=== PATIENT | female | born 1945 | race Caucasian/White ===

== ENCOUNTER 2019-05-18 10:43 | Emergency (ER) | payer MEDICARE ==
--- NOTE | 2019-05-18 11:20 | EDM.PDOC ---
ED HPI GENERAL MEDICAL PROBLEM - General Chief Complaint: Diabetic Complaint Stated Complaint: HIGH BLOOD SUGAR Time Seen by Provider: 05/18/19 11:05 Source of Information: Reports: Patient, Family History Limitations: Reports: No Limitations - History of Present Illness INITIAL COMMENTS - FREE TEXT/NARRATIVE: Patient is an unfortunate morbidly obese 73-year-old female who presents emergency Department today with complaint of high blood sugar. Patient reports that 4 days ago she had an episode of confusion and lost her balance. And since that time she reports she's had sore throat cough congestion runny nose no fever so she went to the clinic today and she got a workup where she had a negative influenza screen negative strep screen the urine which showed elevation in glucose CBC which showed a white count of 13,500 a CMP which showed a glucose elevated at 441 and BUN of 45 and creatinine 1.48 sodium was 133 anion gap no acidosis two-view chest was also performed and we have a report which shows "impression: No acute cardiopulmonary disease." - Related Data Allergies Allergy/AdvReac Type Severity Reaction Status Date / Time codeine Allergy Cannot Verified 05/18/19 11:09 Remember hydrocodone Allergy Cannot Verified 05/18/19 11:09 Remember Home Meds: Home Meds Albuterol [Ventolin HFA] 2 puff INH Q4H PRN 05/18/19 [History] Azithromycin [Zithromax] 250 mg PO ASDIRECTED #6 tab 05/18/19 [Rx] Celecoxib [CeleBREX] 100 mg PO BID 05/18/19 [History] Furosemide [Lasix] 80 mg PO DAILY 05/18/19 [History] Gabapentin [Neurontin] 600 mg PO BEDTIME 05/18/19 [History] Losartan [Cozaar] 25 mg PO DAILY 05/18/19 [History] Potassium Chloride [Klor-Con M20] 20 meq PO BID 05/18/19 [History] Pramipexole Di-HCl [Mirapex] 1 mg PO QID 05/18/19 [History] Spironolactone [Aldactone] 50 mg PO DAILY 05/18/19 [History] metFORMIN [Glucophage XR] 500 mg PO BIDMEALS 05/18/19 [History] ED ROS GENERAL - Review of Systems Review Of Systems: See Below Constitutional: Denies: Fever, Chills HEENT: Reports: Rhinitis, Throat Pain Respiratory: Reports: Cough. Denies: Shortness of Breath GI/Abdominal: Denies: Abdominal Pain, Diarrhea, Nausea, Vomiting Neurological: Reports: Dizziness ED EXAM GENERAL NO PERIP PULSE - Physical Exam Exam: See Below Exam Limited By: No Limitations General Appearance: Alert, WD/WN, Mild Distress, Obese Ears: Other (Bilateral TMs dull) Nose: Normal Inspection, Normal Mucosa, No Blood Throat/Mouth: Normal Inspection, Normal Lips, Normal Teeth, Normal Gums, Normal Oropharynx, Normal Voice, No Airway Compromise Head: Atraumatic, Normocephalic Neck: Normal Inspection, Supple, Non-Tender, Full Range of Motion Respiratory/Chest: No Respiratory Distress, Lungs Clear, Normal Breath Sounds, No Accessory Muscle Use, Chest Non-Tender Cardiovascular: Normal Peripheral Pulses, Regular Rate, Rhythm, No Edema, No Gallop, No JVD, No Murmur, No Rub GI/Abdominal: Normal Bowel Sounds, Soft, Non-Tender, No Organomegaly, No Distention, No Abnormal Bruit, No Mass Back Exam: Normal Inspection, Full Range of Motion, NT Extremities: Normal Inspection, Normal Range of Motion, Non-Tender, Normal Capillary Refill, Other (Bilateral pretibial pedal edema 2+) Skin Exam: Warm, Dry Course - Vital Signs Last Recorded V/S: Last Vital Signs Temp 98 F 05/18/19 10:56 Pulse 78 05/18/19 12:30 Resp 18 05/18/19 12:30 BP 106/67 05/18/19 12:30 Pulse Ox 95 05/18/19 12:30 - Orders/Labs/Meds Orders: Active Orders 24 hr Category Date Time Status Accu Check [Blood Glucose Check, Bedside] [] ONETIME Care 05/18/19 11:23 Active Labs: Laboratory Tests 05/18/19 Range/Units 11:26 Glucose 384 H (83-115) mg/dL Meds: Medications Discontinued Medications Generic Name Dose Route Start Last Admin Trade Name Navid PRN Reason Stop Dose Admin Ceftriaxone Sodium 1 gm 05/18/19 12:47 Rocephin IM 05/18/19 12:48 ONETIME ONE Insulin Human Regular 15 unit 05/18/19 11:22 05/18/19 11:51 Humulin R SUBCUT 05/18/19 11:23 15 unit ONETIME ONE Administration - Re-Assessments/Exams Free Text/Narrative Re-Assessment/Exam: 05/18/19 12:48 Repeat Accu-Chek 384, no evidence of acidosis at this time we'll discharge to home and outpatient follow-up outpatient with PCP Departure - Departure Time of Disposition: 12:49 Disposition: Home, Self-Care 01 Clinical Impression: Hyperglycemia Acute bronchitis Qualifiers: Bronchitis organism: unspecified organism Qualified Code(s): J20.9 - Acute bronchitis, unspecified Acute sinusitis Qualifiers: Sinusitis location: other Recurrence: not specified as recurrent Qualified Code (s): J01.80 - Other acute sinusitis Acute pharyngitis Qualifiers: Pharyngitis/tonsillitis etiology: unspecified etiology Qualified Code(s): J02.9 - Acute pharyngitis, unspecified - Discharge Information Prescriptions: Azithromycin [Zithromax] 250 mg PO ASDIRECTED #6 tab Referrals: Jennifer Eagle MD [Primary Care Provider] - Forms: ED Department Discharge Additional Instructions: Home, rest, return as needed for worsening condition Sepsis Event Note - Focused Exam Vital Signs: Vital Signs Temp Pulse Resp BP Pulse Ox 05/18/19 12:30 78 18 106/67 95 05/18/19 10:56 98 F 90 18 139/85 95 Date Exam was Performed: 05/18/19 Time Exam was Performed: 12:48 - My Orders Last 24 Hours: My Active Orders 05/18/19 11:23 Accu Check [Blood Glucose Check, Bedside] [RC] ONETIME - Assessment/Plan Last 24 Hours: My Active Orders 05/18/19 11:23 Accu Check [Blood Glucose Check, Bedside] [RC] ONETIME
[2019-05-18] MEDS ORDERED: Insulin Regular, Human 100 Units/ML 3 ML Vial SUBCUT ONE (11:22)
[2019-05-18] MEDS ORDERED: cefTRIAXone 1 GM Vial IM ONE (12:47)
== END 2019-05-18 13:12 | disposition home or self-care (01) ==
LOC: JD.ED 10:43
DX: R73.9 Hyperglycemia, unspecified (principal); J20.9 Acute bronchitis, unspecified; J01.80 Other acute sinusitis; J02.9 Acute pharyngitis, unspecified; E66.01 Morbid (severe) obesity due to excess calories; Z88.5 Allergy status to narcotic agent
CPT/HCPCS: 36415; 82947; 82962; 96372; 99284; J0696; J1815; 99283

== ENCOUNTER 2020-04-18 16:11 | Emergency (ER) | payer MEDICARE ==
[2020-04-18] MEDS ORDERED: Lidocaine 1% 50 ML MDV INJECT ONE (17:12)
[2020-04-18] MEDS ORDERED: Cephalexin 500 MG Cap PO ONE (17:12)
[2020-04-18] MEDS ORDERED: Diphtheria,Pertussis(Acell),Tetanus Vaccine 0.5 ML Syringe IM ONE (17:14)
--- NOTE | 2020-04-18 17:39 | EDM.PDOC ---
ED HPI GENERAL MEDICAL PROBLEM - General Chief Complaint: Laceration Stated Complaint: LEFT LEG LACERATION Time Seen by Provider: 04/18/20 17:02 Source of Information: Reports: Patient, RN Notes Reviewed - History of Present Illness INITIAL COMMENTS - FREE TEXT/NARRATIVE: 74 yr old female that suffered Lac injury to L lower leg a short time ago at home, states she caught her leg on the sharp edge of box containing a Jarret present. She thinks it was the sharp edge of the box that caused the lac injury. - Related Data Allergies Allergy/AdvReac Type Severity Reaction Status Date / Time codeine Allergy Cannot Verified 04/18/20 16:25 Remember hydrocodone Allergy Cannot Verified 04/18/20 16:25 Remember Home Meds: Home Meds Albuterol [Ventolin HFA] 2 puff INH Q4H PRN 05/18/19 [History] Azithromycin [Zithromax] 250 mg PO ASDIRECTED #6 tab 05/18/19 [Rx] Celecoxib [CeleBREX] 100 mg PO BID 05/18/19 [History] Furosemide [Lasix] 80 mg PO DAILY 05/18/19 [History] Gabapentin [Neurontin] 600 mg PO BEDTIME 05/18/19 [History] Losartan [Cozaar] 25 mg PO DAILY 05/18/19 [History] Potassium Chloride [Klor-Con M20] 20 meq PO BID 05/18/19 [History] Pramipexole Di-HCl [Mirapex] 1 mg PO QID 05/18/19 [History] Spironolactone [Aldactone] 50 mg PO DAILY 05/18/19 [History] metFORMIN [Glucophage XR] 500 mg PO BIDMEALS 05/18/19 [History] cephALEXin [Cephalexin] 500 mg PO TID #20 capsule 04/18/20 [Rx] Past Medical History HEENT History: Reports: Cataract, Impaired Vision Other HEENT History: patient wears glasses Cardiovascular History: Reports: Hypertension Respiratory History: Reports: Asthma Gastrointestinal History: Reports: Hiatal Hernia HOT PACKER History: Reports: Other (See Below) Other HOT PACKER History: hysterectomy Musculoskeletal History: Reports: Arthritis Endocrine/Metabolic History: Reports: Diabetes, Type II - Past Surgical History HEENT Surgical History: Reports: Cataract Surgery GI Surgical History: Reports: Hernia Repair/Other Musculoskeletal Surgical History: Reports: Shoulder Surgery, Other (See Below) Other Musculoskeletal Surgeries/Procedures:: left hand Social & Family History - Tobacco Use Tobacco Use Status *Q: Never Tobacco User - Caffeine Use Caffeine Use: Reports: None - Recreational Drug Use Recreational Drug Use: No ED ROS GENERAL - Review of Systems Review Of Systems: See Below Constitutional: Reports: No Symptoms HEENT: Reports: Other (mild scratchiness and mattering L eye for 1 week) Respiratory: Reports: No Symptoms Cardiovascular: Reports: No Symptoms GI/Abdominal: Reports: No Symptoms Musculoskeletal: Reports: Other (L leg laceration) Skin: Reports: Other (L leg laceration) Neurological: Denies: Numbness, Tingling, Weakness ED EXAM, SKIN/RASH Exam: See Below General Appearance: Alert, No Apparent Distress Head: Atraumatic, Other (Mild L conjunctival injection medial L eye, mild crusting) Neck: Supple Respiratory/Chest: No Respiratory Distress Extremities: Other (8.5 cm full thickness jagged flap laceration L lower lateral leg) Neurological: Alert, Oriented, No Motor/Sensory Deficits Skin: Warm, Dry, Normal Color ED SKIN PROCEDURES - Laceration/Wound Repair Left Lower Leg Appearance: Linear, Irregular Distal NVT: Neuro & Vascular Intact Anesthetic Type: Local Local Anesthesia - Lidocaine (Xylocaine): 1% Plain Lac/Wound length In cm: 8.5 Suture Size: 3-0 # of Sutures: 24 Suture Type: Nylon Course - Vital Signs Last Recorded V/S: Last Vital Signs Temp 97 F 04/18/20 16:20 Pulse 69 04/18/20 16:20 Resp 18 04/18/20 16:20 BP 154/74 H 04/18/20 16:20 Pulse Ox 98 04/18/20 16:20 - Orders/Labs/Meds Orders: Active Orders 24 hr Category Date Time Status Vaccines to be Administered [RC] PER UNIT ROUTINE Care 04/18/20 17:15 Active Meds: Medications Discontinued Medications Generic Name Dose Route Start Last Admin Trade Name Navid PRN Reason Stop Dose Admin Cephalexin 500 mg 04/18/20 17:12 04/18/20 17:29 Keflex PO 04/18/20 17:13 500 mg ONETIME ONE Administration Diphtheria/Tetanus/Acell Pertussis 0.5 ml 04/18/20 17:14 04/18/20 17:29 Boostrix IM 04/18/20 17:15 0.5 ml .ONCE ONE Administration Lidocaine HCl 50 ml 04/18/20 17:12 04/18/20 17:29 Xylocaine 1% INJECT 04/18/20 17:13 50 ml ONETIME ONE Administration Departure - Departure Time of Disposition: 19:14 Disposition: Home, Self-Care 01 Condition: Fair Clinical Impression: Laceration of leg Qualifiers: Encounter type: initial encounter Laterality: left Qualified Code(s): S81.812A - Laceration without foreign body, left lower leg, initial encounter Conjunctivitis Qualifiers: Conjunctivitis type: acute Acute conjunctivitis type: unspecified Laterality: left Qualified Code(s): H10.32 - Unspecified acute conjunctivitis, left eye - Discharge Information Prescriptions: cephALEXin [Cephalexin] 500 mg PO TID #20 capsule Instructions: Laceration Care, Adult, [id number], Sutures, Nadira, or Adhesive Wound Closure, [id number] Referrals: Jaelyn Snow MD [Primary Care Provider] - Forms: ED Department Discharge Additional Instructions: Laceration care instr. Keep pressure dressing on L leg for 2 days, than change every 1 to 2 days. You may bath or shower when you do change the dressing. Otherwise keep the dressings dry and clean. Cephalexin antibioitc 500 mg 3 times daily for 1 week or until gone. Prescription for that has been sent electronic to [facility] [employer] [facility]. Elevate leg as much as possible. Have rechecked any sign of infection. Gentamycin Opththalmic eye drops for L eye conjunctivitis. Stitches out in 12 days. Sepsis Event Note (ED) - Evaluation Sepsis Screening Result: No Definite Risk - Focused Exam Vital Signs: Vital Signs Temp Pulse Resp BP Pulse Ox 04/18/20 16:20 97 F 69 18 154/74 H 98 - My Orders Last 24 Hours: My Active Orders 04/18/20 17:15 Vaccines to be Administered [RC] PER UNIT ROUTINE - Assessment/Plan Last 24 Hours: My Active Orders 04/18/20 17:15 Vaccines to be Administered [RC] PER UNIT ROUTINE
== END 2020-04-18 19:25 | disposition home or self-care (01) ==
LOC: JD.ED 16:11
DX: S81.812A Laceration without foreign body, left lower leg, initial encounter (principal); H10.32 Unspecified acute conjunctivitis, left eye; I10 Essential (primary) hypertension; J45.909 Unspecified asthma, uncomplicated; E11.9 Type 2 diabetes mellitus without complications; M19.90 Unspecified osteoarthritis, unspecified site; Z23 Encounter for immunization; Z88.5 Allergy status to narcotic agent; Z79.899 Other long term (current) drug therapy; W23.0XXA Caught, crushed, jammed, or pinched between moving objects, initial encounter; Y92.009 Unspecified place in unspecified non-institutional (private) residence as the place of occurrence of the external cause
CPT/HCPCS: 12004; 90471; 90715; 99282; A9270; J2001

== ENCOUNTER 2021-08-20 17:19 | Emergency (ER) | payer MEDICARE, OTHER ==
[2021-08-20] MEDS ORDERED: Pramipexole 0.5 MG Tab PO STA (22:24)
== END 2021-08-20 23:29 | disposition home or self-care (01) ==
LOC: JD.ED 17:19
DX: R07.9 Chest pain, unspecified (principal); I10 Essential (primary) hypertension; E11.9 Type 2 diabetes mellitus without complications; Z88.5 Allergy status to narcotic agent; Z79.84 Long term (current) use of oral hypoglycemic drugs
CPT/HCPCS: 36415; 71045; 80053; 84484; 85025; 85379; 85610; 93005; 99285; A9270

== ENCOUNTER 2023-10-09 09:42 | Inpatient (IN) | payer MEDICARE, OTHER ==
[2023-10-09] MEDS: HYDROmorphone 0.5 MG/0.5 ML Syringe IVPUSH ONE (10:45)
[2023-10-09] MEDS: cefTRIAXone 2 GM in Sodium Chloride 0.9% 100 ML IV ONE (10:46)
[2023-10-09] MEDS: Sodium Chloride 0.9% 10 ML Syringe FLUSH PRN (10:46)
[2023-10-09 11:07] LABS: HEMATOCRIT 40.2 % (37.0-47.0); HEMOGLOBIN 13.1 gm/dl (12.0-16.0); MEAN CORPUSCULAR HGB CONC 32.6 g/dl (32.0-36.0); MEAN CORPUSCULAR VOLUME 101.3 fl (83.0-99.0); MEAN PLATELET VOLUME 9.9 fl (9.4-12.3); PLATELET COUNT,PLT 293 K/mm3 (150-400); RED BLOOD CELL COUNT 3.97 M/mm3 (4.10-5.30)
[2023-10-09 11:29] LABS: INR 0.93
[2023-10-09 11:38] LABS: A/G RATIO 0.7 (1-2); ALBUMIN 2.9 g/dl (3.4-5.0); ANION GAP 10.7 (5-15); BILIRUBIN TOTAL 0.5 mg/dL (0.2-1.0); BUN/CREATININE RATIO 31.7 (14-18); C-REACTIVE PROTEIN 6.78 mg/dL (<0.30); CALCIUM 8.9 mg/dL (8.5-10.1); CREATININE 0.6 mg/dL (0.55-1.02); EST CRCL DRUG DOSING (CG) 55.51 mL/min; POTASSIUM,K 3.7 mEq/L (3.5-5.1); PROTEIN TOTAL,TP 7.2 g/dl (6.4-8.2)
[2023-10-09 11:41] LABS: LACTIC ACID 0.8 mmol/L (0.4-2.0)
[2023-10-09 12:00] LABS: BAND PERCENT MAN 0 % (0-10); BASOPHILS PERCENT MAN 0 (0.1-1.2); EOSINOPHILS PERCENT MAN 0 % (0.7-5.8); LYMPHOCYTES % ATYPICAL MANUAL 0 %; LYMPHOCYTES PERCENT MAN 12 % (20-40); MONOCYTES PERCENT MAN 10 % (2-10)
[2023-10-09 12:02] LABS: ACANTHOCYTES 1+ SLIGHT; OVALOCYTES 1+ SLIGHT; PLATELET COUNT ESTIMATE ADEQUATE; POLYCHROMASIA 1+ SLIGHT; TOXIC GRANULATION 1+ SLIGHT
[2023-10-09] MEDS ORDERED: Fluconazole 150 MG Tab PO PRN (13:00)
[2023-10-09] MEDS ORDERED: BETAMETHASONE DIP TOP PRN (13:00)
[2023-10-09] MEDS ORDERED: CLOTRIMAZOLE TOP PRN (13:00)
[2023-10-09] MEDS ORDERED: Ondansetron 4 MG/2 ML SDV IV PRN (14:51)
[2023-10-09] MEDS ORDERED: Albuterol 0.083% 2.5 MG/3 ML Neb Soln NEB PRN (14:51)
[2023-10-09] MEDS: Albuterol/Ipratropium 3.0-0.5 MG/3 ML Neb Soln NEB ONE (15:34)
[2023-10-09] MEDS: Enoxaparin 40 MG/0.4 ML Syringe SUBCUT SCH (15:58)
[2023-10-09 16:02] LABS: HEMOGLOBIN A1C 8.3 %
[2023-10-09] MEDS: fentaNYL 100 MCG/2 ML SDV IVPUSH ONE (17:00)
[2023-10-09] MEDS: Pramipexole 0.5 MG Tab PO SCH (17:34)
[2023-10-09] MEDS: Insulin Lispro 100 Unit/ML 3 ML KwikPen SUBCUT SCH (17:34)
[2023-10-09] MEDS: Gabapentin 300 MG Cap PO SCH (20:26)
[2023-10-09] MEDS: traMADol 50 MG Tab PO PRN (20:26)
[2023-10-09] MEDS: Furosemide 40 MG Tab PO SCH (20:28)
[2023-10-10 05:36] LABS: BASOPHILS PERCENT AUTO 0.2 % (0.0-1.0); EOSINOPHILS ABSOLUTE AUTO 0.1 K/mm3 (0.0-0.4); EOSINOPHILS PERCENT AUTO 1.4 % (0.0-6.0); HEMATOCRIT 37.1 % (37.0-47.0); HEMOGLOBIN 12.1 gm/dl (12.0-16.0); IMMATURE GRAN ABSOLUTE AUTO 0.05 K/mm3 (0.00-0.05); IMMATURE GRAN PERCENT AUTO 0.5 % (0.0-0.4); LYMPHOCYTES ABSOLUTE AUTO 2.5 K/mm3 (1.0-4.8); LYMPHOCYTES PERCENT AUTO 25.1 % (24.0-44.0); MEAN CORPUSCULAR HEMOGLOBIN 33.2 pg (28.0-32.0); MEAN CORPUSCULAR HGB CONC 32.6 g/dl (32.0-36.0); MEAN CORPUSCULAR VOLUME 101.6 fl (83.0-99.0); MEAN PLATELET VOLUME 10.2 fl (9.4-12.3); MONOCYTES ABSOLUTE AUTO 1.5 K/mm3 (0.0-0.8); MONOCYTES PERCENT AUTO 15.1 % (0.0-8.0); NEUTROPHILS ABSOLUTE AUTO 5.6 K/mm3 (1.8-7.7); NEUTROPHILS PERCENT AUTO 57.7 % (41.0-71.0); PLATELET COUNT,PLT 273 K/mm3 (150-400); RED BLOOD CELL COUNT 3.65 M/mm3 (4.10-5.30); WHITE BLOOD CELL COUNT,WBC 9.79 K/mm3 (3.9-11.3)
[2023-10-10 05:52] LABS: A/G RATIO 0.6 (1-2); ALBUMIN 2.3 g/dl (3.4-5.0); ANION GAP 10.6 (5-15); BILIRUBIN TOTAL 0.4 mg/dL (0.2-1.0); BUN/CREATININE RATIO 18.3 (14-18); C-REACTIVE PROTEIN 7.73 mg/dL (<0.30); CALCIUM 8.3 mg/dL (8.5-10.1); CREATININE 0.6 mg/dL (0.55-1.02); EST CRCL DRUG DOSING (CG) 55.51 mL/min; MAGNESIUM 1.8 mg/dL (1.8-2.4); POTASSIUM,K 3.6 mEq/L (3.5-5.1); PROTEIN TOTAL,TP 6.1 g/dl (6.4-8.2)
[2023-10-10] MEDS: Furosemide 80 MG Tab PO SCH (08:38)
[2023-10-10] MEDS: Isosorbide Mononitrate 30 MG Tab.ER PO SCH (08:38)
[2023-10-10] MEDS: Celecoxib 100 MG Cap PO SCH (08:39)
[2023-10-10] MEDS: Pantoprazole 40 MG Tab.CR PO SCH (08:40)
[2023-10-10] MEDS: Docusate Sodium 100 MG Cap PO SCH (08:40)
[2023-10-10] MEDS: Montelukast 10 MG Tab PO SCH (08:40)
[2023-10-10] MEDS: DULoxetine 30 MG Cap PO SCH (08:40)
[2023-10-10] MEDS: cefTRIAXone 2 GM in Sodium Chloride 0.9% 100 ML IV SCH (10:03)
[2023-10-10] MEDS: fentaNYL 100 MCG/2 ML SDV IVPUSH PRN (10:03)
[2023-10-10] MEDS: Nystatin Topical Powder 15 GM Bottle TOP SCH (20:41)
[2023-10-10] MEDS ORDERED: Nystatin Crm 30 GM Tube TOP SCH (21:00)
[2023-10-11 05:55] LABS: BASOPHILS PERCENT AUTO 0.2 % (0.0-1.0); EOSINOPHILS ABSOLUTE AUTO 0.2 K/mm3 (0.0-0.4); EOSINOPHILS PERCENT AUTO 2.1 % (0.0-6.0); HEMATOCRIT 38.7 % (37.0-47.0); HEMOGLOBIN 12.6 gm/dl (12.0-16.0); IMMATURE GRAN ABSOLUTE AUTO 0.04 K/mm3 (0.00-0.05); IMMATURE GRAN PERCENT AUTO 0.4 % (0.0-0.4); LYMPHOCYTES PERCENT AUTO 21.9 % (24.0-44.0); MEAN CORPUSCULAR HEMOGLOBIN 33.2 pg (28.0-32.0); MEAN CORPUSCULAR HGB CONC 32.6 g/dl (32.0-36.0); MEAN CORPUSCULAR VOLUME 101.8 fl (83.0-99.0); MEAN PLATELET VOLUME 9.9 fl (9.4-12.3); MONOCYTES ABSOLUTE AUTO 1.4 K/mm3 (0.0-0.8); NEUTROPHILS ABSOLUTE AUTO 5.4 K/mm3 (1.8-7.7); NEUTROPHILS PERCENT AUTO 60.4 % (41.0-71.0); NRBC ABSOLUTE 0.02 (0.00-0.02); NRBC PERCENT 0.2 % (0.0-0.2); PLATELET COUNT,PLT 296 K/mm3 (150-400); WHITE BLOOD CELL COUNT,WBC 8.98 K/mm3 (3.9-11.3)
[2023-10-11 06:27] LABS: A/G RATIO 0.6 (1-2); ALBUMIN 2.3 g/dl (3.4-5.0); ANION GAP 7.6 (5-15); BILIRUBIN TOTAL 0.3 mg/dL (0.2-1.0); BUN/CREATININE RATIO 21.7 (14-18); C-REACTIVE PROTEIN 6.27 mg/dL (<0.30); CALCIUM 8.6 mg/dL (8.5-10.1); CREATININE 0.6 mg/dL (0.55-1.02); EST CRCL DRUG DOSING (CG) 55.51 mL/min; POTASSIUM,K 3.6 mEq/L (3.5-5.1); PROTEIN TOTAL,TP 6.3 g/dl (6.4-8.2)
[2023-10-11] MEDS: Acetaminophen 325 MG Tab PO PRN (12:44)
[2023-10-12 05:57] LABS: BASOPHILS PERCENT AUTO 0.3 % (0.0-1.0); EOSINOPHILS ABSOLUTE AUTO 0.2 K/mm3 (0.0-0.4); HEMATOCRIT 39.7 % (37.0-47.0); HEMOGLOBIN 12.8 gm/dl (12.0-16.0); IMMATURE GRAN ABSOLUTE AUTO 0.03 K/mm3 (0.00-0.05); IMMATURE GRAN PERCENT AUTO 0.4 % (0.0-0.4); LYMPHOCYTES ABSOLUTE AUTO 2.2 K/mm3 (1.0-4.8); LYMPHOCYTES PERCENT AUTO 29.6 % (24.0-44.0); MEAN CORPUSCULAR HEMOGLOBIN 32.9 pg (28.0-32.0); MEAN CORPUSCULAR HGB CONC 32.2 g/dl (32.0-36.0); MEAN CORPUSCULAR VOLUME 102.1 fl (83.0-99.0); MEAN PLATELET VOLUME 10.1 fl (9.4-12.3); MONOCYTES ABSOLUTE AUTO 1.1 K/mm3 (0.0-0.8); MONOCYTES PERCENT AUTO 14.6 % (0.0-8.0); NEUTROPHILS ABSOLUTE AUTO 3.9 K/mm3 (1.8-7.7); NEUTROPHILS PERCENT AUTO 53.1 % (41.0-71.0); NRBC ABSOLUTE 0.02 (0.00-0.02); NRBC PERCENT 0.3 % (0.0-0.2); PLATELET COUNT,PLT 308 K/mm3 (150-400); RED BLOOD CELL COUNT 3.89 M/mm3 (4.10-5.30); WHITE BLOOD CELL COUNT,WBC 7.32 K/mm3 (3.9-11.3)
[2023-10-12 06:19] LABS: A/G RATIO 0.6 (1-2); ALBUMIN 2.3 g/dl (3.4-5.0); BILIRUBIN TOTAL 0.2 mg/dL (0.2-1.0); BUN/CREATININE RATIO 25.7 (14-18); C-REACTIVE PROTEIN 4.96 mg/dL (<0.30); CALCIUM 8.7 mg/dL (8.5-10.1); CREATININE 0.7 mg/dL (0.55-1.02); EST CRCL DRUG DOSING (CG) 47.58 mL/min; PROTEIN TOTAL,TP 6.2 g/dl (6.4-8.2)
[2023-10-12] MEDS: Albuterol/Ipratropium 3.0-0.5 MG/3 ML Neb Soln NEB PRN (14:12)
== END 2023-10-13 18:18 | disposition home or self-care (01) | DRG 603 ==
LOC: JD.ED 09:42 → JD.MS 12:55
PROVIDERS: ADMIT Internal Medicine; ATTEND Student in an Organized Health Care Education/Training Program
DX: L03.116 Cellulitis of left lower limb (principal); S09.90XA Unspecified injury of head, initial encounter; H54.7 Unspecified visual loss; Z96.659 Presence of unspecified artificial knee joint; M19.011 Primary osteoarthritis, right shoulder; L08.9 Local infection of the skin and subcutaneous tissue, unspecified; M19.012 Primary osteoarthritis, left shoulder; E11.69 Type 2 diabetes mellitus with other specified complication; J45.20 Mild intermittent asthma, uncomplicated; E11.65 Type 2 diabetes mellitus with hyperglycemia; G47.33 Obstructive sleep apnea (adult) (pediatric); G25.81 Restless legs syndrome; Z98.890 Other specified postprocedural states; I10 Essential (primary) hypertension; W19.XXXA Unspecified fall, initial encounter; J45.909 Unspecified asthma, uncomplicated; Z98.49 Cataract extraction status, unspecified eye; Z90.49 Acquired absence of other specified parts of digestive tract; Z90.710 Acquired absence of both cervix and uterus; Z87.81 Personal history of (healed) traumatic fracture; E11.9 Type 2 diabetes mellitus without complications; Z79.899 Other long term (current) drug therapy; Z88.5 Allergy status to narcotic agent; Z88.6 Allergy status to analgesic agent; W01.0XXA Fall on same level from slipping, tripping and stumbling without subsequent striking against object, initial encounter
CPT/HCPCS: 36415; 70450; 72125; 73030; 80053; 83036; 83605; 85007; 85027; 85610; 86140; 87040 ×2; 96374; 96375; 99285; J0696; J1170; J3490 ×2; 71045; 71045-26; 73630-26-LT; 73630-LT; 73700-26-LT; 73700-LT; 82947; 83735; 85025; 87641; 94640; 94761; 97110-GP; 97161-GP; 99223; 99232; 99239; A9270-GY; J1650; J1815; J3010; J7620-GY